=== PATIENT | male | born 1950 | race Caucasian/White ===

== ENCOUNTER 2016-07-05 00:40 | Emergency (ER) | payer MEDICARE, BC, OTHER ==
--- NOTE | 2016-07-05 01:16 | EDM.PDOC ---
ED HISTORY OF PRESENT ILLNESS - General Chief Complaint: Chest Pain Stated Complaint: CHEST PAIN Time Seen by Provider: 07/05/16 01:11 Source of Information: Reports: Patient History Limitations: Reports: No limitations - History of Present Illness INITIAL COMMENTS - FREE TEXT/NARRATIVE: 65-year-old male presents the ED with a left precordial chest pain discomfort then he developed on Tuesday, July 03 in the morning upon awakening. He has been lifting weights at the gym including bench press and thought that he may have strained his pectoralis muscle in this area. The pain has been waxing and waning but never gone away completely and today seemed to radiate through to his into infrascapular area on the left side. He has no cough or sputum production no fever or chills. Does not her to deep breathe. No recent travel history to be worrisome for DVT. He has a history fibrillation recurring twice that required treatment with cardioversion with success for return to sinus rhythm. Last time was June 2015. The monitor reveals recurrence of atrial fibrillation walk in the room. Rate is currently about 88 per minute. Symptom Onset Date: 07/02/16 (Noted discomfort medial mid chest upon awakening on July 02) Timing/Duration: Reports: Day(s):, Gradual onset, Intermittent Severity: moderate Location, General: Reports: chest (Left precordium radiating to to his left upper mid back adjacent to the scapula.) Quality: Reports: Ache, Pressure Improves with: Reports: None Worsens with: Reports: None Context, General: Denies: Activity, Exercise, Lifting, Sick contact, Trauma, Other Associated Symptoms (General): Reports: chest pain. Denies: no other symptoms ( See history present illness), confusion, cough, cough w sputum, diaphoresis, fever/chills, headaches, loss of appetite, malaise, nausea/vomiting, rash, seizure, shortness of breath, syncope, weakness Treatments [employer]: Reports: Other (see below) (None) - Related Data Allergies/ADRs: Allergies Allergy/AdvReac Type Severity Reaction Status Date / Time atorvastatin calcium AdvReac Muscle Verified 07/05/16 00:51 [From Lipitor] Aches Home Meds: Home Meds Metoprolol Succinate [Toprol XL] 50 mg PO DAILY 05/30/14 [History] Rivaroxaban [Xarelto] 20 mg PO DAILY 05/30/14 [History] Calcium Citrate 1 tab PO DAILY 10/07/15 [History] Cholecalciferol (Vitamin D3) [Vitamin D3] 1 cap PO DAILY 10/07/15 [History] Pravastatin [Pravachol] 20 mg PO DAILY 10/07/15 [History] [place]-3/DHA/Epa/Fish Oil [Fish Oil EC 1,000 MG Softgel] 3,000 mg PO DAILY [History] Past Medical History HEENT History: Reports: Impaired vision Other HEENT History: wears corrective lenses Cardiovascular History: Reports: Afib (Has had cardioversion twice because of A. fib. Last time was in June of 2015 in the time before that was about April of 2014. He remains on Xarelto .), High cholesterol, Hypertension, Other (see below) (Patient states he did have an angiogram performed about 6 or 7 years ago but arteries were felt to be fairly clear in he required no procedure.) Other Cardiovascular History: chf, sick sinus syndrome Musculoskeletal History: Reports: Other (see below) Other Musculoskeletal History: broke back twice - Past Surgical History Cardiovascular Surgical History: Reports: Other (see below) Other Cardiovascular Surgeries/Procedures: cardioversion x2 Other GI Surgeries/Procedures: sigmoidoscopy Social & Family History - Tobacco Use Smoking Status *Q: Current Every Day Smoker Years of Tobacco use: 28 Packs/Tins Daily: 0.3 Used Tobacco, but Quit: No Second Hand Smoke Exposure: No - Caffeine Use Caffeine Use: Reports: Coffee - Alcohol Use Days Per Week of Alcohol Use: 0 - Recreational Drug Use Recreational Drug Use: No Drug Use in Last 12 Months: No - Living Situation & Occupation Living situation: Reports: Occupation: employed [employer] - Review of Systems Review Of Systems: See Below Constitutional: Denies: fever, chills, malaise, weakness, fatigue, decreased appetite, weight loss HEENT: Reports: No symptoms Respiratory: Denies: Shortness of Breath, Wheezing, Pleuritic Chest Pain, Cough , Sputum, Hemoptysis, Other Cardiovascular: Reports: Chest pain (Left precordium tall 18 discomfort medially adjacent to the sternum.), Blood pressure problem (Often was running too low and for this reason he discontinued his). Denies: Claudication ( evening dose of metoprolol. He just takes 25 mg in the morning instead of 25 mg twice a day. This finding every time he stood up he blacked out he had to hang onto objects to walk.), Dyspnea on exertion, Edema, Lightheadedness, Orthopnea, Palpitations Endocrine: Reports: fatigue (Excellent more tired than usual.) GI/Abdominal: Reports: No symptoms : Reports: no symptoms Musculoskeletal: Reports: no symptoms Skin: Reports: no symptoms Neurological: Reports: No Symptoms Psychiatric: Reports: No symptoms Hematologic/Lymphatic: Reports: no symptoms Immunologic: Reports: no symptoms ED EXAM, GENERAL - Physical Exam Exam: See Below Exam Limited By: No limitations General Appearance: alert, WD/WN, no apparent distress Eye Exam: bilateral eye: normal inspection Neck: normal inspection, supple, non-tender, full range of motion. No: carotid bruit, lymphadenopathy (L), thyromegaly Respiratory/Chest: no respiratory distress, lungs clear, normal breath sounds, no accessory muscle use, other (Does have some pain to palpation over the fourth and fifth ribs where they attach to the sternum.) Cardiovascular: normal peripheral pulses, no edema, no gallop, no JVD, no murmur , no rub, irregularly irregular (Monitor reveals atrial fibrillation at a minute.) Peripheral Pulses: 2+: posterior tibial (L), posterior tibial (R), dorsalis pedis (L), dorsalis pedis (R) GI/Abdominal: normal bowel sounds, soft, non tender, no organomegaly, no distention, other (Male) Exam: No hernia Back Exam: normal inspection, full range of motion, other (Summoned and tenderness adjacent to thoracic 78). No: CVA tenderness (L), CVA tenderness (R) Extremities: normal inspection, normal range of motion, non-tender, no pedal edema, normal capillary refill Neurological: alert, oriented, CN II-XII intact, normal cognition, normal gait, normal reflexes, no motor/sensory deficits Psychiatric: normal affect, normal mood Skin Exam: Warm, Intact, Normal color, No rash EKG INTERPRETATION EKG Date: 07/05/16 Time: 00:55 Rhythm: a-fib (With rate of 82 140 per minute.) Rate (beats/min): 103 [place]: LAD-left axis deviation (-31) P-wave: absent QRS: other (His poor R-wave progression initially. There are Q waves in lead V1. There is near Q waves in leads 3 and aVF and likely in lead 2 is well suggesting possible old inferior wall myocardial infarction) ST-T: normal QT: normal Course - Vital Signs Last Recorded V/S: Last Vital Signs Temp 36.4 C 07/05/16 00:44 Pulse 83 07/05/16 02:23 Resp 18 07/05/16 02:23 BP 121/100 H 07/05/16 02:23 Pulse Ox 99 07/05/16 02:23 - Orders/Labs/Meds Orders: Active Orders 24 hr Category Date Time Status EKG 12 Lead [EKG Documentation Completion] [RC] STAT Care 07/05/16 00:55 Active Chest 1V Frontal [CR] Stat Exams 07/05/16 00:55 Taken Labs: Laboratory Tests 07/05/16 07/05/16 07/05/16 Range/Units 00:52 00:52 00:52 WBC 9.29 H (4.23-9.07) K/mm3 RBC 5.03 (4.63-6.08) M/mm3 Hgb 15.1 (13.7-17.5) gm/L Hct 45.8 (40.1-51.0) % MCV 91.1 (79.0-92.2) fl MCH 30.0 (25.7-32.2) pg MCHC 33.0 (32.2-35.5) g/dl RDW Std Deviation 46.8 H (35.1-43.9) fL Plt Count 196 (163-337) K/mm3 MPV 9.5 (9.4-12.3) fl Neut % (Auto) Cancelled Lymph % (Auto) Cancelled [place] % (Auto) Cancelled Eos % (Auto) Cancelled Baso % (Auto) Cancelled Neut # (Auto) Cancelled Lymph # (Auto) Cancelled [place] # (Auto) Cancelled Eos # (Auto) Cancelled Baso # (Auto) Cancelled Neutrophils % (Manual) 67 H (40-60) % Band Neutrophils % 0 (0-10) % Lymphocytes % (Manual) 25 (20-40) % Atypical Lymphs % 0 % Monocytes % (Manual) 5 (2-10) % Eosinophils % (Manual) 3 (0.8-7.0) % Basophils % (Manual) 0 L (0.2-1.2) Manual Slide Review Cancelled Platelet Estimate Adequate RBC Morph Comment Normal Sodium 142 142 (136-145) mEq/L Potassium 3.8 3.8 (3.5-5.1) mEq/L Chloride 107 107 (98-107) mEq/L Carbon Dioxide 28 26 (21-32) mEq/L Anion Gap 10.8 12.8 (5-15) BUN 18 14 (7-18) mg/dL Creatinine 1.1 1.1 (0.7-1.3) mg/dL Est Cr Clr Drug Dosing 63.05 63.05 mL/min Estimated GFR (MDRD) > 60 > 60 (>60) mL/min BUN/Creatinine Ratio 16.4 12.7 L (14-18) Glucose 99 99 (80-115) mg/dL Calcium 9.8 9.8 (8.5-10.1) mg/dL Magnesium 2.0 (1.8-2.4) mg/dl Total Bilirubin 0.4 (0.2-1.0) mg/dL AST 18 (15-37) U/L ALT 32 (16-63) U/L Alkaline Phosphatase 87 (46-116) U/L CK-MB (CK-2) 0.7 (0-3.6) ng/ml Troponin I < 0.017 (0.00-0.056) ng/mL B-Natriuretic Peptide (0-100) pg/mL Total Protein 7.0 (6.4-8.2) g/dl Albumin 3.6 (3.4-5.0) g/dl Globulin 3.4 gm/dL Albumin/Globulin Ratio 1.1 (1-2) TSH 3rd Generation 4.790 H (0.358-3.74) uIU/mL 07/05/16 Range/Units 00:52 WBC (4.23-9.07) K/mm3 RBC (4.63-6.08) M/mm3 Hgb (13.7-17.5) gm/L Hct (40.1-51.0) % MCV (79.0-92.2) fl MCH (25.7-32.2) pg MCHC (32.2-35.5) g/dl RDW Std Deviation (35.1-43.9) fL Plt Count (163-337) K/mm3 MPV (9.4-12.3) fl Neut % (Auto) Lymph % (Auto) [place] % (Auto) Eos % (Auto) Baso % (Auto) Neut # (Auto) Lymph # (Auto) [place] # (Auto) Eos # (Auto) Baso # (Auto) Neutrophils % (Manual) (40-60) % Band Neutrophils % (0-10) % Lymphocytes % (Manual) (20-40) % Atypical Lymphs % % Monocytes % (Manual) (2-10) % Eosinophils % (Manual) (0.8-7.0) % Basophils % (Manual) (0.2-1.2) Manual Slide Review Platelet Estimate RBC Morph Comment Sodium (136-145) mEq/L Potassium (3.5-5.1) mEq/L Chloride (98-107) mEq/L Carbon Dioxide (21-32) mEq/L Anion Gap (5-15) BUN (7-18) mg/dL Creatinine (0.7-1.3) mg/dL Est Cr Clr Drug Dosing mL/min Estimated GFR (MDRD) (>60) mL/min BUN/Creatinine Ratio (14-18) Glucose (80-115) mg/dL Calcium (8.5-10.1) mg/dL Magnesium (1.8-2.4) mg/dl Total Bilirubin (0.2-1.0) mg/dL AST (15-37) U/L ALT (16-63) U/L Alkaline Phosphatase (46-116) U/L CK-MB (CK-2) (0-3.6) ng/ml Troponin I (0.00-0.056) ng/mL B-Natriuretic Peptide 173 H (0-100) pg/mL Total Protein (6.4-8.2) g/dl Albumin (3.4-5.0) g/dl Globulin gm/dL Albumin/Globulin Ratio (1-2) TSH 3rd Generation (0.358-3.74) uIU/mL - Radiology Interpretation Free Text/Narrative:: 65-year-old male presents the ED with left precordial chest discomfort that he awoke 2 days ago. He thought that he perhaps had injured the area by lifting weights in the gym. States it's been a nagging discomfort for most of the weekend but none bad enough to restrict him from any of his activities. This morning or yesterday morning he awoke and the pain was radiating through to his mid back as well. No associated shortness of breath or cough. No dizziness or lightheadedness. History of recurrent atrial fibrillation requiring cardioversion in 2014 and 2016 in about a year ago. Remains on Xarelto . He had to cut back his metoprolol dose from 25 twice a day to 25 mg once daily in the morning because he was feeling so dizzy and lightheaded most the time when he stood up. He reports unclear when he went back into atrial fibrillation but monitor and ECG showed rate of 80-140 beats per minute at this time. Therefore he will have routine lab work including cardiac enzymes and BNP. TSH and magnesium will be done as well. One view chest x-ray to be obtained. At this time is right for the most part is in the 90s. BP is 126/95. - Re-Assessments/Exams Free Text/Narrative Re-Assessment/Exam: 07/05/16 01:45 chest x-ray done portably is within normal limits. It suggests comments of the right pulmonary artery. Heart rate remains in the 86 per minute range. An H&H fibrillation. BP is maintained at 123/90. Blood work is pending. 07/05/16 02:18 labs are back and cardiac markers are normal with a troponin of less than 0.017 CK-MB was less than 0.7 BNP is mildly elevated at 173. Glucose was 99 creatinine was 1.1. Sodium 142 potassium 3.8. Interestingly his TSH came back a bit high at 4.79 indicating subclinical hypothyroidism. I'm going to get him up and walking and see if his heart rate increases dramatically when he is walking. 07/05/16 02:22 heart rate immediately goes up into the 120s and 130s when he standing and walking. I therefore advised him to return to his metoprolol 25 mg twice a day dosing. He reports a bit lightheaded and dizzy and had cut out the second tablet of metoprolol about 2 months ago. He therefore well may have been an atrial fibrillation much longer than we realize. I still think that he has chest wall pain from lifting weights as he can make it hurt when I palpate the medial aspect of the pectoralis major muscle against the sternum on the left side. He has a followup with his emergency management director Dr. Zaida berrios August 03. I will send today's notes to with the plan of speed up that appointment time if at all possible for reconsideration of another attempted cardioversion. Departure - Departure Time of Disposition: 02:24 Disposition: Home, Self-Care 01 Condition: fair Clinical Impression: Atrial fibrillation with rapid ventricular response, Anterior chest wall pain, Subclinical hypothyroidism Referrals: Michel Narayanan MD [Primary Care Provider] - Forms: ED Department Discharge Additional Instructions: Evaluation in the emergency department today in regards to persistent left- sided anterior chest pain for the last 2 days. Able to localize the pain quite well and make it hurt to palpation at the insertion of the pectoralis major muscle against the sternum. I suspect there is a muscle injury or tear in this area from lifting weights. However ECG monitoring revealed it to be in atrial fibrillation with a rate in the 80s primarily when your lying still but jumping up to as high as 130 when standing or walking. Therefore you need to return to the metoprolol 25 mg twice daily dosing with the first tablet taken tonight when he got home. There are no evident no evidence that you've had any recent heart attack or injuries. There is a small amount of extra fluid within your lungs which is not need to be treated at this time. Lab work also identified that your thyroid gland is working a little harder than normal to produce enough thyroid hormone for your body and over time it may continue to fail at which time he would need a thyroid supplement. I would suggest your TSH or thyroid-stimulating hormone lab tests be done at least yearly. Followup with Dr. Cerda --her emergency management director is indicated sooner than August 03 which is pre-plan. I will send today's notes to his office and have him set up a appointment time at his convenience and contact you lately with a much sooner appointment. Return to the emergency room if any other problems occur. - My Orders Last 24 Hours: My Active Orders 07/05/16 00:55 EKG 12 Lead [EKG Documentation Completion] [RC] STAT - Assessment/Plan Last 24 Hours: My Active Orders 07/05/16 00:55 EKG 12 Lead [EKG Documentation Completion] [RC] STAT
[2016-07-05 02:24] VITALS: BP 121/100
--- NOTE | 2016-07-05 07:43 | CR ---
Chest: Portable view of the chest was obtained. Comparison: Previous chest x-ray of 05/30/14. Heart size is within normal limits. Tortuous thoracic aorta is seen. Lungs are clear with no acute infiltrates. Previous lower cervical spine surgery is seen. Impression: 1. Incidental findings. Nothing acute is identified on portable chest x-ray. Diagnostic code #2
== END 2016-07-05 02:34 | disposition home or self-care (01) ==
LOC: JD.ED 00:40
DX: I48.91 Unspecified atrial fibrillation (principal); R07.89 Other chest pain; E02 Subclinical iodine-deficiency hypothyroidism; E78.00 Pure hypercholesterolemia, unspecified; I10 Essential (primary) hypertension; F17.210 Nicotine dependence, cigarettes, uncomplicated; Z79.899 Other long term (current) drug therapy; Z88.8 Allergy status to other drugs, medicaments and biological substances
CPT/HCPCS: 36415; 71010; 71010-26; 80048; 80053; 82553; 83735; 83880; 84443; 84484; 85025; 93005; 99285; 99285-25

== ENCOUNTER 2021-06-01 04:20 | Emergency (ER) | payer MEDICARE, BC ==
[2021-06-01 06:20] VITALS: BP 108/77; PULSE 65
== END 2021-06-01 06:18 | disposition home or self-care (01) ==
LOC: JD.ED 04:20
DX: R20.2 Paresthesia of skin (principal); E78.00 Pure hypercholesterolemia, unspecified; I10 Essential (primary) hypertension; Z88.8 Allergy status to other drugs, medicaments and biological substances; Z79.01 Long term (current) use of anticoagulants; Z79.899 Other long term (current) drug therapy
CPT/HCPCS: 36415; 80053; 83735; 85025; 99283; 99284

== ENCOUNTER 2022-10-28 07:25 | Day surgery (SDC) | payer MEDICARE, BC ==
[2022-10-28] MEDS: Polymyxin B/Trimethoprim 10 ML Bottle EYELF SCH ×4 (07:31→09:13)
[2022-10-28] MEDS: Brimonidine 0.2% Ophth Soln 5 ML Bottle EYELF SCH ×4 (07:36→09:13)
[2022-10-28] MEDS: Phenylephrine 2.5% Ophth Soln 2 ML Bot EYELF SCH ×6 (07:41→08:55)
[2022-10-28] MEDS: Tropicamide 1% Ophth Soln 15 ML Bottle EYELF SCH ×4 (07:46→08:36)
[2022-10-28] MEDS: Pilocarpine 4% Ophth Soln 15 ML Bot EYELF SCH ×2 (07:48→09:13)
[2022-10-28] MEDS: Tetracaine HCl/PF 0.5% 4 ML Bottle EYEBOTH SCH ×5 (07:48→09:01)
[2022-10-28] MEDS: Cefuroxime 10 MG/ML SYRINGE EYELF SCH ×2 (07:48→09:12)
[2022-10-28] MEDS: Lidocaine 1% PF 2 ML SDV INJECT SCH ×2 (07:48→09:02)
[2022-10-28 09:26] VITALS: BP 90/56; PULSE 80
== END 2022-10-28 09:21 | disposition home or self-care (01) ==
LOC: JD.SDS 07:25
PROVIDERS: ATTEND Ophthalmology
DX: H25.812 Combined forms of age-related cataract, left eye (principal); H35.373 Puckering of macula, bilateral; H02.831 Dermatochalasis of right upper eyelid; H02.834 Dermatochalasis of left upper eyelid; H40.9 Unspecified glaucoma; H35.3131 Nonexudative age-related macular degeneration, bilateral, early dry stage; H21.81 Floppy iris syndrome; H43.811 Vitreous degeneration, right eye; H43.393 Other vitreous opacities, bilateral; I48.91 Unspecified atrial fibrillation; E78.00 Pure hypercholesterolemia, unspecified; I10 Essential (primary) hypertension; Z98.41 Cataract extraction status, right eye; Z96.1 Presence of intraocular lens; Z79.01 Long term (current) use of anticoagulants; Z79.899 Other long term (current) drug therapy; Z88.8 Allergy status to other drugs, medicaments and biological substances
CPT/HCPCS: 66984; A9270; C1780; J0697; 00142; 99100; J3490

== ENCOUNTER 2025-01-09 01:36 | Emergency (ER) | payer BC, MEDICARE ==
[2025-01-09] MEDS ORDERED: Sodium Chloride 0.9% 10 ML Syringe FLUSH PRN (02:06)
[2025-01-09] MEDS ORDERED: Nitroglycerin 0.4 MG Tab.SL SL PRN (02:27)
[2025-01-09 02:44] LABS: BASOPHILS ABSOLUTE AUTO 0.1 K/mm3 (0.0-0.2); BASOPHILS PERCENT AUTO 1.3 % (0.0-1.0); EOSINOPHILS ABSOLUTE AUTO 0.5 K/mm3 (0.0-0.4); EOSINOPHILS PERCENT AUTO 4.8 % (0.0-6.0); IMMATURE GRAN ABSOLUTE AUTO 0.03 K/mm3 (0.00-0.05); IMMATURE GRAN PERCENT AUTO 0.3 % (0.0-0.4); LYMPHOCYTES ABSOLUTE AUTO 3.3 K/mm3 (1.0-4.8); LYMPHOCYTES PERCENT AUTO 35.1 % (24.0-44.0); MEAN PLATELET VOLUME 10.0 fl (9.4-12.4); MONOCYTES ABSOLUTE AUTO 0.9 K/mm3 (0.0-0.8); MONOCYTES PERCENT AUTO 9.0 % (0.0-8.0); NEUTROPHILS ABSOLUTE AUTO 4.7 K/mm3 (1.8-7.7); NEUTROPHILS PERCENT AUTO 49.5 % (41.0-71.0); NRBC ABSOLUTE 0.00 (0.00-0.02); NRBC PERCENT 0.0 % (0.0-0.2); PLATELET COUNT,PLT 188 K/mm3 (150-400); RED BLOOD CELL COUNT 4.94 M/mm3 (4.52-5.90); WHITE BLOOD CELL COUNT,WBC 9.44 K/mm3 (3.9-11.3)
[2025-01-09] MEDS: Nitroglycerin 2% Oint 1 GM UD Packet TOP ONE (02:47)
[2025-01-09 03:08] LABS: BLOOD UREA NITROGEN,BUN 14.0 mg/dL (7-18); CARBON DIOXIDE,CO2 32.0 mEq/L (21-32); CHLORIDE,CL 107.0 mEq/L (98-107); CREATININE 1.1 mg/dL (0.7-1.3); EST CRCL DRUG DOSING (CG) 55.27 mL/min; ESTIMATED GFR 70.0 mL/min (>60); GLUCOSE RANDOM 99.0 mg/dL (70-99); POTASSIUM,K 4.0 mEq/L (3.5-5.1); SODIUM,NA 145.0 mEq/L (136-145); TROPONIN I HIGH SENSITIVITY 8.0 pg/mL (<=76)
[2025-01-09 05:52] VITALS: BP 104/65; PULSE 79
== END 2025-01-09 05:48 | disposition home or self-care (01) ==
LOC: JD.ED 01:36
DX: R07.89 Other chest pain (principal); I48.91 Unspecified atrial fibrillation; E78.00 Pure hypercholesterolemia, unspecified; Z86.16 Personal history of COVID-19; Z79.899 Other long term (current) drug therapy; Z79.01 Long term (current) use of anticoagulants
CPT/HCPCS: 36415; 71045; 80048; 84484; 85025; 85379; 93005; 99285; A9270